=== PATIENT | male | born 1990 | race Caucasian/White ===

== ENCOUNTER 2020-02-03 21:07 | Emergency (ER) | payer SELFPAY | END 2020-02-03 22:46 | disposition home or self-care (01) | LOC: ERS 21:07 | DX: M79.642 Pain in left hand (principal); F17.210 Nicotine dependence, cigarettes, uncomplicated | CPT/HCPCS: 99283 ==

== ENCOUNTER 2020-04-09 17:14 | Emergency (ER) | payer SELFPAY | END 2020-04-09 17:50 | disposition home or self-care (01) | LOC: ERS 17:14 | DX: S60.512A Abrasion of left hand, initial encounter (principal); S60.511A Abrasion of right hand, initial encounter; F15.10 Other stimulant abuse, uncomplicated; L03.114 Cellulitis of left upper limb; L03.113 Cellulitis of right upper limb | CPT/HCPCS: 99283 ==